=== PATIENT | male | born 1960 | race Caucasian/White ===

== ENCOUNTER 2023-07-19 16:03 | Outpatient (CLI) | payer OTHER, SELFPAY ==
--- NOTE | ~2023-07-19 | XR_ITS ---
XR hip RT min 2V 07/19/2023 16:26 Indication: Right hip pain Procedure: 2 views right hip Comparison: No prior studies for comparison. Findings: There is severe osteoarthritis of the right hip. There is loose bodies superior to the join t space. No fracture or traumatic malalignment. No soft tissue abnormality. No foreign bodies. Impression: 1: Severe osteoarthritis of the right hip. Reviewed, dictated and finalized at location B. Impression: 1: Severe osteoarthritis of the right hip.
--- NOTE | ~2023-07-19 | XR_ITS ---
EXAMINATION: XR knee RT min 4V DATE: 07/19/2023 16:26 INDICATION: Right knee pain TECHNIQUE: Anteroposterior, 2 oblique and crosstable lateral views of the right knee were obtained COMPARISON: None. FINDINGS: Alignment is normal. No fracture. There is mild joint space narrowing at the medial compartment alth ough severity of joint space narrowing can be underestimated on nonweightbearing imaging. No evident osteophytosis. No joint effusion/layering lipohemarthrosis. Soft tissues are unremarkable. IMPRESSION: 1. Mild osteoarthritis at the medial compartment of the right knee. Reviewed, dictated and finalized at location A.
== END 2023-07-19 16:04 ==
LOC: MICIMG 16:07
PROVIDERS: PCP Internal Medicine Gastroenterology; Visit Provider Internal Medicine Gastroenterology
DX: M17.11 Unilateral primary osteoarthritis, right knee (principal); M16.11 Unilateral primary osteoarthritis, right hip
CPT/HCPCS: 73502; 73564

== ENCOUNTER 2023-07-25 15:17 | Outpatient (CLI) | payer OTHER, SELFPAY ==
--- NOTE | ~2023-07-25 | US_ITS ---
EXAMINATION: US scrotum doppler DATE: 07/25/2023 15:51 INDICATION: Chronic right testicular pain and swelling. TECHNIQUE: Grayscale and Doppler ultrasound images of the testes were obtained. COMPARISON: None. FINDINGS: The right testis measures 5.0 x 2.6 x 3.5 cm. The left testis measures 4.7 x 2.4 x 2.9 cm. There is normal vascular flow to both testes. The right epididymis is normal with normal vascular mojgan w. The left epididymis demonstrates a 3 mm cyst. There is a small right hydrocele. IMPRESSION: 1. Small right hydrocele. Reviewed, dictated and finalized at location E. IMPRESSION: 1. Small right hydrocele.
== END 2023-07-25 15:18 ==
PROVIDERS: PCP Internal Medicine Gastroenterology; Visit Provider Internal Medicine Gastroenterology
DX: R52 Pain, unspecified (principal); R60.9 Edema, unspecified; N43.3 Hydrocele, unspecified
CPT/HCPCS: 76870; 93976

== ENCOUNTER 2024-01-10 15:49 | Outpatient (CLI) | payer OTHER, SELFPAY ==
--- NOTE | ~2024-01-10 | XR_ITS ---
SINGLE AP VIEW PELVIS Ordering provider: Dale Rodgers, History: . OSTEOARTHITIS IN RIGHT HIP . Comparison: July 19, 2023 FINDINGS: BONES: No acute fracture or dislocation. HIP JOINT SPACES: Severe osteoarthritic changes of the right hip. AVN is highly suggestive. Left hip osteoarthritic changes with mild degree is also noted. SACROILIAC JOINT SPACES/LUMBAR SPINE: The sacroiliac joint spaces are normal. Mild degenerative es of the visualized lower lumbar spine. PUBIC SYMPHYSIS: Normal. SOFT TISSUES: Normal. IMPRESSION: No acute osseous abnormality pelvis. Right hip severe osteoarthritic changes with highly suggestive AVN. Reviewed, dictated and finalized at location A.
== END 2024-01-10 15:50 | disposition home or self-care (01) ==
LOC: MICIMG 15:51
PROVIDERS: PCP Orthopaedic Surgery; Visit Provider Orthopaedic Surgery
DX: M16.11 Unilateral primary osteoarthritis, right hip (principal)
CPT/HCPCS: 72170

== ENCOUNTER 2024-05-20 09:19 | Outpatient (CLI) | payer OTHER, SELFPAY ==
--- NOTE | 2024-05-20 | ECHO_ITS ---
Patient Info Name: Adams Aldana Age: 64 years : 1960 Gender: Male Ht: 65 in Wt: 165 lbs BSA: 1.87 m2 HR: 48 bpm BP: 149 / 83 mmHg Technical Quality: Fair Exam Date: 05/20/2024 10:04 AM Exam Location: Echo Lab Patient Status: Outpatient Admit Date: 05/20/2024 Staff Ordering Physician: Mukul, Noam Tee MD Perianesthesia Nurse: Raina Brewer RDCS Attending Provider: Mukul, Noam Tee MD Referring Physician: Mukul GEE; Exam Type: CA echo doppler color flow Study Info Indications - CARDIOMEGALY - LEFT VENTRICULAR HYPERTROPHY Complete two-dimensional, color flow and Doppler transthoracic echocardiogram is performed. Summary 1. Complete two-dimensional, color flow and Doppler transthoracic echocardiogram is performed. 2. Left ventricular chamber dimension is mildly enlarged. 3. Left ventricular systolic function is normal, estimated at 50-55%. 4. The left ventricular diastolic function is normal. 5. E/e' 9 is minimally elevated. 6. Left atrial chamber dimension is mildly enlarged. 7. Right atrial chamber dimension is mildly enlarged. 8. There is trace mitral valve regurgitation. 9. No pulmonary hypertension, estimated pulmonary arterial systolic pressure is 26 mmHg. Left Ventricle E/e' 9 is minimally elevated. Left ventricular chamber dimension is mildly enlarged. Left ventricular systolic function is normal, estimated at 50-55%. The left ventricular diastolic function is normal. Right Ventricle Right ventricular chamber dimension is normal. Right ventricular systolic function is normal. Left Atria Left atrial chamber dimension is mildly enlarged. Right Atria Right atrial chamber dimension is mildly enlarged. Aortic Valve The aortic valve is trileaflet. There is no aortic valve stenosis. There is no aortic valve regurgitation. Pulmonic Valve There is no pulmonic regurgitation. Mitral Valve There is no mitral valve stenosis. There is trace mitral valve regurgitation. Tricuspid Valve There is no tricuspid valve regurgitation. No pulmonary hypertension, estimated pulmonary arterial systolic pressure is 26 mmHg. Pericardium/Pleural There is no pericardial effusion. Inferior Vena Cava Normal inferior vena cava with >50% collapse upon inspiration consistent with normal right atrial pressure, 5 mmHg. Aorta The aortic root size at the sinus of Valsalva is normal. Left Ventricular Outflow Tract Name Value Normal LVOT 2D LVOT Diameter 1.9 cm LVOT Doppler LVOT Peak Gradient 3 mmHg LVOT Mean Gradient 2 mmHg LVOT VTI 21 cm LVOT VTI/AV VTI Ratio 0.9 LVOT Stroke Volume 56 ml LVOT CO 9.6 l/min LVOT CI 5.1 l/min/m2 Pulmonic Valve Name Value Normal RVOT Doppler RVOT Peak Gradient 2 mmHg PV Doppler PV Peak Gradient 3 mmHg Mitral Valve Name Value Normal MV Doppler MV Peak Gradient 3 mmHg MV Mean Gradient 1 mmHg MV Decel [place] 430 cm/s2 MV PHT 49 ms MV Area (PHT) 4.5 cm2 4.0-5.0 MV Area (Cont Eq VTI) 1.6 cm2 MV Diastolic Function MV E Peak Velocity 73 cm/s MV A Peak Velocity 59 cm/s MV E/A 1.2 MV Decel Time 170 ms MV Annular TDI MV E/e' (Septal) 13.7 <=8.0 MV E/e' (Lateral) 7.4 <=8.0 MV E/e' (Average) 10.6 Tricuspid Valve Name Value Normal TV Regurgitation Doppler TR Peak Velocity 229 cm/s TR Peak Gradient 21 mmHg Estimated PAP/RSVP RA Pressure 5 mmHg <=5 PA Systolic Pressure 26 mmHg <36 RV Systolic Pressure 26 mmHg <36 Aorta Name Value Normal Ascending Aorta Ao Root Diameter (MM) 3.4 cm Ao Root Diam Index (MM) 1.8 cm/m2 Aortic Valve Name Value Normal AV Doppler AV Peak Velocity 98 cm/s AV Peak Gradient 4 mmHg AV Mean Gradient 2 mmHg AV VTI 24 cm AV Area (Cont Eq VTI) 2.3 cm2 >=3.0 AV Area (Cont Eq Coy) 2.3 cm2 AV Regurgitation 2D LVOT Area 2.7 cm2 Ventricles Name Value Normal LV Dimensions 2D/MM IVS Diastolic Thickness (2D) 1.3 cm 0.6-1.0 LVID Diastole (2D) 4.2 cm 4.2-5.8 LVIW Diastolic Thickness (2D) 1.1 cm 0.6-1.0 LVID Systole (2D) 2.8 cm 2.5-4.0 LVOT Diameter 1.9 cm LV Mass (2D Cubed) 171.35 g 88.00-224.00 LV Mass Index (2D Cubed) 92 g/m2 49-115 Relative Wall Thickness (2D) 0.52 LV Fractional Shortening/Ejection Fraction 2D/MM LV Fractional Shortening (2D) 34 % 25-43 LV EF (2D Teicholz) 63 % 52-72 LV Diastolic Volume (4C MOD) 116 ml LV EF (4C MOD) 50 % LV Diastolic Volume (2C MOD) 96 ml LV EF (2C MOD) 65 % LV Diastolic Volume (BP MOD) 109 ml 62-150 LV Diastolic Volume Index (BP MOD) 58 ml/m2 34-74 LV Systolic Volume (BP MOD) 46 ml 21-61 LV Systolic Volume Index (BP MOD) 24 ml/m2 11-31 LV EF (BP MOD) 58 % 52-72 LV Diastolic Length (4C) 8.0 cm LV Systolic Length (4C) 6.8 cm LV Stroke Volume (4C MOD) 59 ml Atria Name Value Normal LA Dimensions LA Dimension (MM) 3.8 cm 3.0-4.1 LA Volume (4C A-L) 54 ml LA Volume (BP A-L) 59 ml RA Dimensions RA Area (4C) 15.9 cm2 <=18.0 Report Signatures
--- OUTSIDE RECORDS SUMMARY | 2024-05-20 10:08 | XMS_ITS ---
Author Organization Unknown Address [address] [place] [address] [phone] Phone Care Team Providers Care Hunter Name Role Phone SUZY Kolb Attending Unavailable ANDRE LAGUERRE Primary Unavailable Immunization Immunization Date Status Additional Notes Code Code System COVID-19, mRNA, LNP-S, PF, 1 00 mcg/0.5mL dose or 50 mcg/0.25mL dose 12/22/2020 Completed 207 CVX COVID-19, mRNA, LNP-S, PF, 1 00 mcg/0.5mL dose or 50 mcg/0.25mL dose 11/24/2020 Completed 207 CVX Social History Type Status Start Date End Date Code Code Syst em Smoking History Never smoker (Never Smoked) 354729457 SNOMED CT Sex Male Medications Medication Start Date End Date Route Frequency Dose Code Code System Medication Instructions Home Meds Celecoxib 200MG Oral Capsule 05/08/2024 Unknown By Mouth Daily 1 CAPSULE 260524 RxNorm 1 CAP JUANY By Mouth Daily amLODIPine Besylate 5MG Oral Tablet 05/08/2024 Unknown By Mouth Daily 1 TABLET 475125 RxNorm 1 TABLE T By Mouth Daily Carvedilol 25MG Oral Tablet 05/08/2024 Unknown By Mouth Twice a day 1 TABLET 722279 RxNorm 1 TABLET By Mouth Twice a day Atorvastatin Calcium 40MG Oral Tablet 05/08/2024 Unknown By Mouth Daily 1 TABLET 858057 RxNorm 1 TABLE T By Mouth Daily Meloxicam 15MG Oral Tablet 05/08/2024 Unknown By Mouth Daily 1 TABLET 824551 RxNorm 1 TABLE T By Mouth Daily With food Tamsulosin HCl 0.4MG Oral Capsule 05/08/2024 Unknown By Mouth Daily 1 CAPSULE 611238 RxNorm 1 CAPSULE By Mouth Daily Acetaminophen 650MG Oral Tablet, Extended Release 05/08/2024 Unknown By Mouth [id number] RxNorm TABLET By Mouth Glucosamine + Chondroitin 15 MG-300 MG-375 MG-0.25 MG Oral Capsule 05/08/2024 Unknown By Mouth Daily RxNorm CAPSULE By Mouth Daily Turmeric 1000MG-5MG Oral Capsule 05/08/2024 Unknown By Mouth Daily [id number] RxNorm CAPSULE By Mouth Daily valACYclovir HCl 1GM Oral Tablet 05/08/2024 Unknown By Mouth Three times a day 1 TABLET 065271 RxNorm 1 TABLET By Mouth Three times a day Beet Root 500 MG Oral Capsule 05/08/2024 Unknown By Mouth RxNorm CAPSULE By Mouth Assessment You had the following problems:OSTEOARTHRITIS OF RIGHT HIP JOINTPAIN IN RIGHT HIP Hospital Discharge Instructions Should you have any questions prior to discharge, please contact a member of your healthcare team. If you have left the hospital and have any questions, please contact your primary care physician. Reason For Referral No Data Found Procedures Procedure Name Date Status Code Code Syste m Orbital fracture completed [id number] SNOMEDCT Problems Problem Start Date Resolved Date Status Code Code System OSTEOARTHRITIS OF RIGHT HIP JOINT active 238283016461660 SNOMED-CT PAIN IN RIGHT HIP active 791358114375 102 SNOMED-CT ENLARGED HEART 05/08/2024 resolved 3381795 SNOM ED-CT HTN 05/08/2024 resolved 68882492 SNOMED-CT GERD 05/08/2024 resolved [id number] SNOMED-CT Allergies and Adverse Reactions Allergy Substance Reaction Severity Start Date Concern Status Co de Code System No Known Drug Allergies Active 237855138 SNOMED-CT Plan of Treatment Dale Rodgers Total Hip 06/12/2024 Personal Care Team Section Performer Name Performer Role Active Date Inactive Phi fowler
--- OUTSIDE RECORDS SUMMARY | 2024-05-20 10:08 | XMS_ITS | Data Portability ---
Author Organization [place] [facility], Main Office Address [address] [place] [address] Care Team Providers Care Scenic Designer Name Role Phone SHADE GILMAN Primary Care Provider SHADE GILMAN Referring Provider [phone] Assessment Encounter Date Assessment Date Assessment LastModified by Organization Details LastModified Time 10/29/2023 10/29/2023 The patient presents with a chief complaint of hip pain due to osteoarthritis. The pain has been ongoing for over a year, with a significant increase in severity in June. The patient initially thought the pain was due to sciatica. The hip pain is described as severe, with a pain level of 8 out of 10, and is localized in the groin and knee. The patient reports difficulty walking and limited mobility. The patient has been taking glucosamine, meloxicam, Tylenol, and turmeric for pain management and had a cortisone injection in June, which provided relief for only 24 hours before the pain worsened again. The patient has a history of an enlarged heart and high blood pressure, which was diagnosed during an ER visit. The patient denies having diabetes and does not smoke. The patient is currently employed and has not tried physical therapy for the hip pain. review of systems per patient questionnaire On exam, he has pain in his anterior groin, with referred pain to the knee. Antalgic gait with limited ambulation ability. Range of motion 110/ 0/20. positive Stinchfield. Pain with abduction and adduction X-ray of hip reviewed, revealed [id number] arthritis, flattened femoral head, presence of bone spurs, and sclerosis. he has osteoarthritis of the right hip. we will begin with a course of conservative management. We will discontinue meloxicam and start Celebrex. We will also do physical therapy for hip strengthening and mobility improvement. He may continue his glucosamine and turmeric supplements. We will plan to have him follow-up in 6-8 weeks after his course of physical therapy to reassess symptoms and discussed further treatment options, including possible hip replacement surgery if needed. He is in agreement with the plan. Not available 10/29/2023 17:15:19 01/08/2024 01/08/2024 63-year-old male presents for follow-up of his right hip. He has a history of hip osteoarthritis, treated conservatively with physical therapy anti-inflammatori es. She reports no change after conservative management, still reports 6-7 out of 10 pain, limitations with walking and daily activities. He has previously had a cortisone injection which gave very temporary relief. Range of motion 110/0/20. positive Stinchfield. Pain with abduction and adduction. Antalgic gait. Sensation intact to light touch. X-rays reviewed, demonstrating vhgv-fq-upny arthritis of the hip with osteophytes, sclerosis, flattened femoral head He has failed conservative management for his hip osteoarthritis and we discussed next step would be DELANEY. Risks, benefits, and alternatives to surgery were discussed with the patient. Risks include but are not limited to pain, stiffness, infection, bleeding, blood clot, injury to other structures including nerves or blood vessels, need for future surgery, and anesthesia risks. We discussed the goal of surgery is to improve symptoms but there is no guarantee of improvement and it is possible the patient's condition is worse after surgery. Patient agreed and would like to proceed. We will send him to get preop clearance and he also has a cardiac history and we will have him get cardiac clearance as well. We will try to get him done before the end of the month given his insurance constraints. Not available 01/08/2024 17:19:32 05/04/2024 05/04/2024 64-year-old male presents for follow-up of his right hip. He has history of hip osteoarthritis failing conservative management. We plan to proceed with total hip arthroplasty. 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 Range of motion 110/0/20. positive Stinchfield. Pain with abduction and adduction. Antalgic gait. Sensation intact to light touch. He has persistent symptoms and we will still plan to proceed with DELANEY. We gave him a refill for Celebrex. Because of his insurance situation with [facility] not being accepted at the hospital, we discussed the alternatives would either be to wait until the hospital insurance situation was worked out, or refer him to another facility. I also offered him the option of seeing me in [facility] if he is willing to travel there. He wanted to explore that option so we will send a referral down to that office. Not available 05/04/2024 09:51:53 Plan of Treatment Reminders Order Date Submit Date Provider Last Modified By Organization Details Last Modified Time Details Appointments Labs 2024 07:05A M [facility] Not available Not available Not available Any 15 2024 03:30P M Shade Gilman MD Not available Not available Not available Lab PSA, serum or plasma [address] (Lab), [address] [place], [address], 05/19/2024 13:12:00 CMP, serum or plasma [address] (Lab), [address] [place], [address], 05/19/2024 13:12:00 lipid panel, serum [address] (Lab), [address] [place], [address], 05/19/2024 13:12:00 urinaly sis, complet e [address] (Lab), [address] [place], [address], 05/19/2024 13:12:00 unliste d lab - CBC study [address] (Lab), [address] [place], [address], 05/19/2024 13:12:00 Referral orthope dic surgeon referra l 2024 025 Not available 05/04/2024 13:42:[address] phys[address]i st referra l - EVAL AND TREAT 2023 024 [facility], [address], [place], [address], 11/13/2023 18:22:12 Procedures None recorde d. Surgeries None recorde d. Imaging US, echocar diogram , transth oracic, complet e, w/ color flow - Please call patient to moisesul eEmmanuelle 2024 025 [facility], [address], [place], [address], 05/06/2024 10:05:23 Medication Orders Celebre x 200 mg capsule 2024 025 [facility][id number], [address] [facility], [place], [place], [id number], 05/05/2024 16:15:42 Celebre x 200 mg capsule 2023 024 [facility] #[id number], [address] , [place], [place], [id number], 05/05/2024 16:10:14 Patient TargetsNo targets recorded. Patient InstructionsNo instructions recorded. Reason for Referral Physical Therapist Referral for Pain in right hip joint EVAL AND TREAT Referring Physician: Dale Rodgers, Orthopedic Surgery, Encounter Date: 10/29/2023 Orthopedic Surgeon Referral for Osteoarthritis of right hip joint Referring Physician: Dale Rodgers, Orthopedic Surgery, Encounter Date: 05/04/2024 Results Created Date Observation Date Name Description Value Unit Range Abnormal Flag Note LastModifiedBy Organization Detail LastModifiedTime 10/29/19 24 07/19/2023 XR, knee No observ ation record ed. [email or web address] Not Available 2023 09:41:48 10/29/19 24 07/19/2023 XR, hip + pelvi s, unila teral No observ ation record ed. [email or web address] Not Available 2023 09:42:28 01/11/20 24 01/10/2024 XR, pelvi s No observ ation record ed. [email or web address] [facility] [address], [place], [address], 01/13/2024 08:13:27 Result Notes None recorded. Problems Name Problem SNOMED Code Status Onset Date Resolution Date Notes Provider Name and Address Organization Details Recorded Time Pain in right hip joint 0887895101385 02 Active 2023 SHANAE Harrison, MD i2we [facility] [employer] [facility] 4 09:53:13 Osteoarthri tis of right hip joint 5409651525759 07 Active 2023 Yue parker, [employer] [facility] 4 10:04:39 Essential hypertensio n 30338360 Active 2024 Shade Gilman MD [address], [place], [address], [employer] [facility] 5 16:23:55 Hyperlipide keena 51683983 Active 2024 Shade Gilman MD [address], [address], [place], [address], [employer] [facility] [employer] [facility] 5 16:24:04 Benign prostatic hyperplasia 113790792 Active 2024 Shade Gilman MD [address], [address], [place], [address], [employer] [facility] 5 16:41:41 Blood in urine 41460986 Active 2024 Shade Gilman MD [address], [address], [place], [address], [employer] [facility] [employer] [facility] 5 16:42:10 Left ventricular hypertrophy 60379356 Active 2024 Shade Gilman MD [address], [place], [address], [facility] [employer] 16:43:06 Problem Notes None recorded. Procedures Surgical History Date Name Laterality Status Provider Name and Address Organization Details Recorded Time Eye Surgery completed Samia Ashby CNA [employer] [facility] 10/29/2023 09:51:47 Imaging Results Imaging Date Name Status LastModified by Organiz ation Details LastModified Time 07/19/2023 XR, knee completed [email or web address] Information no t available 10/29/2023 09:41:48 07/19/2023 XR, hip + pelvis, unilateral completed [email or web address] Information not available 10/29/2023 09:42:28 01/10/2024 XR, pelvis completed [email or web address] [facility] [address], [place], [address], 01/13/2024 08:13:27 Procedure Notes None recorded. Medical Equipment None Reported. Allergies No known drug allergies Medications Name Sig Start Date Stop Date Status Note LastModified by Organization Details LastModified Time celecoxib 200 mg capsule TAKE 1 CAPSULE BY MOUTH EVERY DAY active Not Available Not Available No t Available atorvastati n 40 mg tablet TAKE 1 TABLET BY MOUTH EVERY DAY 2024 active DAPHNE NOV ok to rf Not Available Not Available Not Available carvedilol 25 mg tablet Take 1 tablet twice a day by oral route. active Not Available Not Available No t Available valacyclovi r 1 gram tablet TAKE 1 TABLET BY MOUTH THREE TIMES DAILY 05/05 completed Not Available Not Available Not Available meloxicam 15 mg tablet TAKE 1 TABLET BY MOUTH ONCE PER DAY 05/05 completed Not Available Not Available Not Available amlodipine 5 mg tablet TAKE 1 TABLET BY MOUTH DAILY active Not Available Not Available No t Available sulfamethox azole 800 mg-trimetho prim 160 mg tablet TAKE 1 TABLET BY MOUTH EVERY 12 HOURS FOR 7 DAYS 05/05 completed Not Available Not Available Not Available acetaminoph en 650 mg tablet Take by oral route. active Not Available Not Available No t Available tamsulosin 0.4 mg capsule TAKE 1 CAPSULE BY MOUTH DAILY active Not Available Not Available No t Available methylpredn isolone 4 mg tablets in a dose pack TAKE BY MOUTH DIRECTED 04/29 completed Not Available Not Available Not Available glucosamine HCl 1,500 mg tablet Take by oral route. active Not Available Not Available No t Available Glucosamine -Chondroiti n-MSM Complex 375 mg-500 mg-15 mg-0.5 mg tablet Take by oral route. active Not Available Not Available No t Available amlodipine besylate (bulk) 5mg active Not Available Not Available Not Available turmeric 1600mg active Not Available Not Avai lable Not Available Vitals Date Recorded Body height Body mass index (BMI) Body weight Provider Name and Address Organization Details Last Updated DateTime 10/29/2023 167.64 cm 27.4 kg/m2 17445.7 g Samia Ashby CNA [facility] [employer] [facility] 10/29/2023 09:40:58 Date Recorded Body height Body mass index (BMI) Body weight Provider Name and Address Organization Details Last Updated DateTime 01/08/2024 165.1 cm 26.6 kg/m2 93635.78 g Samia Ashby CNA [facility] [employer] [facility] 01/08/2024 16:02:48 Date Recorded Body height Body mass index (BMI) Body weight Pain severity - 0-10 verbal numeric rating [Score] - Reported Provider Name and Address Organization Details Last Updated DateTime 05/04/2024 165.1 cm 25 kg/m2 36820.86 g 7 Cristina Cedillo [facility] [employer] [facility] 05/04/2024 09:19:42 Date Recorded Body height Body mass index (BMI) Body weight Body temperature Heart rate Oxygen saturation Oxygen saturation in Arterial blood by Pulse oximetry Systolic blood pressure Diastolic blood pressure Provider Name and Address Organization Details Last Updated DateTime 165.1 cm 27.6 kg/m2 70972.3 3 g 97.6 [degF] 69 /min 97 % 97 % 136 mm[Hg] 76 mm[Hg] Abigail laureano [facility] [employer] [facility] 16:09:20 Social History Question Answer Notes LastModified by Organizat ion Details LastModified Time Tobacco Smoking Status Never Smoker SHANAE Harrison [facility] [employer] [facility] 10/29/2023 09:51:27 What Is Your Level Of Alcohol Consumption? Moderate Information not available 10/29/2023 Have There Been Any Changes To Your Family Or Social Situation? No Information not available 05/05/2024 Do You Have Smoke And Carbon Monoxide Detectors In Your Home? Yes Information not available 05/05/2024 Sex: Unknown Functional Status None recorded. Mental Status None recorded. Family History Relationship Description Onset Age of this Age Resolved Age Notes LastModified by Organization Details LastModified Time Mother Heart disease [email or web address] Not available 2023 09:49:59 Mother Diabetes mellitus [email or web address] Not available 2023 09:50:10 Medical History Condition Response ARTHRITIS Y Past Encounters Encounter ID Performer Location Encounter Start Date Encounter Closed Date Diagnosis/Indication Diagnosis SNOMED-CT Code Diagnosis ICD10 Code Diagnosis Note [id number] Dale Rodgers MD [facility] [address] [place] [address] 10/29/2023 09:23:54 10/29/2023 10:17:00 Pain in right hip joint 9848904778 08000 M25.441 [id number] Dale Rodgers MD [facility] [address] [place] [address] 01/08/2024 15:44:07 01/08/2024 16:27:29 Pain in right hip joint 4583124033 73326 M25.479 [id number] MD [facility]IS [facility] [address] [address] 05/04/2024 09:14:21 05/04/2024 09:51:01 Pain in right hip joint 5430177816 73542 M25.551 Osteoarthr itis of right hip joint 6924581911 90392 M16.11 [id number] Shade Gilman MD [facility] [address] [place] [address] 05/05/2024 15:56:06 05/05/2024 16:51:03 Adult health examination 375179702 Z00.00 Colonoscop 2023 some polyps were removed, at [place], next in 5 yrsPneumov ax- not yetFlu-dos ent wantCovid- up todate no boostersPS A- not sure Essential hypertension 44583042 I10 under control Hyperlipidemia 71994953 E78.5 labs Benign pro static hyperplasia 983316881 N40.0 to see urology Pain in ri ght hip joint 4884785082 50126 M25.551 arthritis, on meds Blood in urine 86343924 R31.9 Screening for malignant neoplasm of prostate 760634300 Z12.5 Left ventr icular hypertrophy 74899284 I51.7 Health Concerns Section Related Observation LastModified by Organization Detai ls LastModified Time None Recorded Concern Status LastModified by Organization Details LastModified Time None Recorded Advance Directives Directive None Recorded Payers Encounter Date Sequence Insurance Name Policy Number Policy Brice Covered Member ID Brice Member ID Guarantor Name 10/29/2023 1 [facility] [id number] Adams Aldana [id number] Adams Aldana 01/08/2024 1 [facility] [id number] Adams Aldana [id number] Adams Aldana 05/04/2024 1 [facility] [id number] Adams Aldana [id number] Adams Aldana 05/05/2024 1 [facility] [id number] Adams Cecilio Aldana [id number] Adams Cecilio Jovan Notes Date Note Type Note Provider Name and Address Organization Details Recorded Time 05/05/2024 text/html Pt is here today for a new patient visit. He use to see Serge , was referred to us. Pt is not fasting [facility] Hypertension- always under controlMeds Amlodipine 5 mg, Carvedilol 25 mg Hyperlipidemia- not watching , needs labsMeds- Atorvastatin 40 mg qd Arthritis- right hip and right knee has severe arthritis, needs surgeryMeds- celecoxib 200mg bidBPH-has nocturia and hematuria, seen at and stated on meds, still has gross blood in the urineMeds-Tamsulos in qd In the past was told that he had enlarged heart, has no symptoms Ex- smoker- quit in 2009, smked for years Shade Gilman MD [address], [place], [address], [place] [facility] 05/05/2024 16:45:06
--- OUTSIDE RECORDS SUMMARY | 2024-05-20 10:08 | XMS_ITS | CONTINUITY OF CARE DOCUMENT ---
Author Name porfirio monroy Address Unknown Organization [place] Office Address [address] [place] [address] Phone [phone] Care Team Providers Care Mine Safety Engineer Name Role Phone Jonel George MD Unavailable [phone] Jonel George MD Unavailable INSURANCE PROVIDERS Payer name Policy type / Coverage type Ava red constitution party ID [facility] [id number] Other [id number]
== END 2024-05-20 09:20 | disposition home or self-care (01) ==
PROVIDERS: PCP Internal Medicine; Visit Provider Internal Medicine
DX: I51.7 Cardiomegaly (principal)
CPT/HCPCS: 93306

== ENCOUNTER 2025-02-05 12:21 | Outpatient (CLI) | payer OTHER, SELFPAY ==
--- NOTE | ~2025-02-05 | PE_ITS ---
EXAMINATION: PET_PETPSMAST_PT DATE: 02/05/2025 14:56 INDICATION: Prostate cancer TECHNIQUE: 5.478 mCi of Illucix Ga-68([id number]) was administered i.v. Low dose computed tomography (CT) images were acquired from the base of the brain to the base of the brain to the proximal thighs for attenuation correction and anatomic localization. Positron emission tomography (PET) images were acquired in the same distribution beginning 74 minutes after injection. Images including fused PET/CT images were reconstructed in axial, coronal, and sagittal planes. Automated exposure control technique was employed. The dose-length product was 990.74mGy-cm. COMPARISON: None FINDINGS: Head/neck: Typical pattern of symmetric physiologic increased activity in the lacrimal, parotid and submandibular glands as well as along the mucosa of the nasal and oral cavities, pharynx and hypopharynx. No pathologically enlarged cervical lymphadenopathy or suspicious foci of increased uptake in the visualized head or neck. Chest: Respiratory motion and dependent atelectasis in the lungs. Couple calcite right lower lobe nodules consistent with old granulomatous disease. No other suspicious pulmonary nodules, pneumonia, pulmonary edema or pleural effusion. Heart size is normal. Atherosclerotic coronary artery calcifications. Thoracic aorta is normal in caliber. No pathologically enlarged or PSMA avid thoracic lymphadenopathy. Abdomen/pelvis/proximal thighs: Physiologic renal accumulation and excretion of activity in the kidneys, bladder and along portions of ureters. There are a couple <2 mm nonobstructing right renal stones. Prostatomegaly measuring 4.9 x 3.5 cm. Approximately 1 cm region of increased activity at the right peripheral zone of the prostate with maximal SUV of 7.8 consistent with primary prostate cancer. Normal degree and slightly heterogenous pattern of increased uptake throughout the liver and spleen without radiologic correlate or dominant PSMA avid lesion. The gallbladder, pancreas and bilateral adrenal glands are normal. Moderate uptake scattered throughout the bowels with typical duodenal and proximal jejunal predominance and without radiologic correlate, also likely physiologic. Normal appendix. No other abnormal foci of increased uptake or pathologically enlarged lymphadenopathy in the abdomen, pelvis or proximal thighs. Musculoskeletal: Right total hip arthroplasty. Moderate thoracolumbar levoscoliosis with severe spondylosis. No suspicious lytic, blastic or abnormally PSMA avid bone lesions. IMPRESSION: 1. Prostatomegaly with small focus of moderate increased activity in the right peripheral zone of the prostate consistent with primary prostate cancer. No evident metastatic disease. Reviewed, dictated and finalized at location A. FING MANAGER IMPRESSION: 1. Prostatomegaly with small focus of moderate increased activity in the right peripheral zone of the prostate consistent with primary prostate cancer. No abhay dent metastatic disease.
== END 2025-02-05 12:22 | disposition home or self-care (01) ==
LOC: ANHIMG 12:21
PROVIDERS: PCP Internal Medicine; Visit Provider Urology
DX: C61 Malignant neoplasm of prostate (principal)
CPT/HCPCS: 78815; A9596